=== PATIENT | male | born 2000 | race Caucasian/White ===

== ENCOUNTER 2019-07-17 08:42 | Emergency (ER) | payer OTHER ==
[~2019-07-17] VITALS: Ht 185.4 cm; Wt 89.1 kg
[2019-07-17 08:44] VITALS: BP 136/56
[2019-07-17] MEDS ORDERED: KETOROLAC 30 MG/1 ML ONE (09:14)
[2019-07-17] MEDS ORDERED: KETOROLAC 30 MG/1 ML IM ONE (09:30)
== END 2019-07-17 12:13 | disposition home or self-care (01) ==
LOC: ED 11:18
DX: S63.501A Unspecified sprain of right wrist, initial encounter (principal); W00.0XXA Fall on same level due to ice and snow, initial encounter; Y93.23 Activity, snow (alpine) (downhill) skiing, snowboarding, sledding, tobogganing and snow tubing; Y92.89 Other specified places as the place of occurrence of the external cause; Y99.8 Other external cause status
CPT/HCPCS: 29125; 99283